=== PATIENT | female | born 1995 ===

== ENCOUNTER 2018-08-16 22:02 | Emergency (ER) | payer MEDICAID ==
[2018-08-16 22:18] VITALS: RESP 16; O2SAT 99
[2018-08-17 00:18] VITALS: BP 122/70; PULSE 72; TEMP 97.9
--- NOTE | 2018-08-17 00:20 | ED PDOC ---
HPI: Back Time Seen by Provider: 08/16/18 23:26 Chief Complaint (Nursing): Back Pain Chief Complaint (Provider): Back Pain History Per: Patient History/Exam Limitations: no limitations Onset/Duration Of Symptoms: Intermittent Episodes (for 3 months) Additional Complaint(s): 23 years old female with no pmhx presents to ER for evaluation of intermittent low back pain and occasional abdominal pain for the last 3 months. Patient reports sometimes when urinating, she feels her urine is hot. She denies any nausea, vomiting, diarrhea or fever. Patient is on breast feeding currently. PMD: non provided Past Medical History Reviewed: Historical Data, Nursing Documentation, Vital Signs Vital Signs: Last Vital Signs Temp 97.9 F 08/17/18 00:17 Pulse 72 08/17/18 00:17 Resp 16 08/17/18 00:17 BP 122/70 08/17/18 00:17 Pulse Ox 99 08/17/18 00:17 - Medical History PMH: No Chronic Diseases - Surgical History Surgical History: No Surg Hx - Family History Family History: States: Unknown Family Hx - Social History Current smoker - smoking cessation education provided: No Alcohol: None Drugs: Denies - Allergies Allergies/Adverse Reactions: Allergies Allergy/AdvReac Type Severity Reaction Status Date / Time No Known Allergies Allergy Verified 08/16/18 22:16 Review of Systems ROS Statement: Except As Marked, All Systems Reviewed And Found Negative Constitutional: Negative for: Fever Gastrointestinal: Positive for: Abdominal Pain. Negative for: Nausea, Vomiting, Diarrhea Musculoskeletal: Positive for: Back Pain (low) Physical Exam - Reviewed Nursing Documentation Reviewed: Yes Vital Signs Reviewed: Yes - Physical Exam Appears: Positive for: Non-toxic, No Acute Distress Head Exam: Positive for: ATRAUMATIC, NORMOCEPHALIC Skin: Positive for: Normal Color, Warm, Dry Eye Exam: Positive for: Normal appearance, EOMI, PERRL Neck: Positive for: Normal, Painless ROM, Supple Cardiovascular/Chest: Positive for: Regular Rate, Rhythm. Negative for: Murmur Respiratory: Positive for: Normal Breath Sounds. Negative for: Wheezing Gastrointestinal/Abdominal: Positive for: Normal Exam, Soft. Negative for: Tenderness Back: Positive for: Normal Inspection. Negative for: L CVA Tenderness, R CVA Tenderness Extremity: Positive for: Normal ROM. Negative for: Pedal Edema, Deformity Neurologic/Psych: Positive for: Alert, Oriented (x3) - ECG O2 Sat by Pulse Oximetry: 99 (RA) Pulse Ox Interpretation: Normal Medical Decision Making Medical Decision Making: Time: 2342 Initial impression: 23 years old female with nonspecific back pain --Urine --Urine dipstick --Urinalysis 0015 --Urine shows no evidence of infection --Explained to patient pain is likely musculoskeletal due to heavy lifting of boxes and her toddler --Advised patient to follow up in clinic and take Tylenol as needed Scribe Attestation: Documented by Nerissa Rae, acting as a scribe for Yury Perea MD. Provider Scribe Attestation: All medical record entries made by the Scribe were at my direction and personally dictated by me. I have reviewed the chart and agree that the record accurately reflects my personal performance of the history, physical exam, medical decision making, and the department course for this patient. I have also personally directed, reviewed, and agree with the discharge instructions and disposition. Disposition - Clinical Impression Clinical Impression: Low back pain - Patient ED Disposition Is Patient to be Admitted: No - Disposition Referrals: [facility] [Outside] Disposition: Routine/Home Disposition Time: 00:15 Condition: STABLE Instructions: Low Back Pain in Adults Forms: [employer] ([employer])
[2018-08-17 00:48] LABS: SQUAMOUS EPITHIAL 17 /hpf (0-5); URINE BACTERIA RARE (<OCC); URINE BILIRUBIN NEGATIVE (NEGATIVE); URINE BLOOD NEGATIVE (NEGATIVE); URINE CLARITY SLIGHTY-CLOUDY (Clear); URINE COLOR YELLOW (YELLOW); URINE GLUCOSE (UA) NEG (NEGATIVE); URINE LEUKOCYTE ESTERASE NEG Leu/uL (Negative); URINE PROTEIN NEGATIVE (NEGATIVE)
== END 2018-08-17 00:18 | disposition home or self-care (01) ==
LOC: H.ER 22:02
DX: M54.5 Low back pain (principal); R10.9 Unspecified abdominal pain